=== PATIENT | male | born 1980 | race Caucasian/White ===

== ENCOUNTER 2025-08-18 10:13 | Outpatient (AMB) | payer OTHER, SELFPAY ==
--- NOTE | 2025-08-18 10:17 | MHC.PC.OV ---
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 Intake Note: New patient visit Stringed Instrument Repairer Required: No Allergies atorvastatin Allergy (Unknown, Verified 08/18/25 10:18) stomach upset No Known Allergies Allergy (Verified 08/18/25 10:18) Medication List - Last Reconciled 08/18/25 by Maggie Dover PA-C famotidine 10 mg PO DAILY Tobacco use date assessed: 08/18/25 Dental Screening Dental Screen Date: 08/18/25 Did you have a dental visit in the last 12 months?: No Did you have a dental problem in the last 6 months where you did not have access to dental care?: No Was dental information given to patient?: Patient declined HPI LONG 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 He is transferring internally. He states a couple years ago he [facility] and [facility] diagnosed with obstructive sleep apnea. He does have the paperwork today proving this study. Was recommended that he start CPAP. He has not been in to see a PCP to get a referral for this. His tells him that he is still stops breathing at night and snores. He has also noticed that his blood pressure is elevated over the last year or 2.. CV: Blood pressure today in the office is 152/86. Sometimes he does get chest pain and he states it is usually while he is sitting they are not doing anything. He does have a family history of heart disease. States that his father 1st needed a CABG at the age of 50. Family history: Father has heart disease and prostate cancer. 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 1. Little interest or pleasure in doing things: not at all 2. Feeling down, depressed, or hopeless: not at all 3. Trouble falling or staying asleep, or sleeping too much: not at all 4. Feeling tired or having little energy: not at all 5. Poor appetite or overeating: not at all 6. Feeling bad about yourself - or that you are a failure or have let yourself or your family down: not at all 7. Trouble concentrating on things, such as reading the newspaper or watching television: not at all 8. Moving or speaking so slowly that other people could have noticed. Or the opposite - being so fidgety or restless that you have been moving around a lot more than usual: not at all 9. Thoughts that you would be better off or of hurting yourself in some way: not at all Total score: 0 Depression Screening Interpretation: Negative Depression Screening Done: Yes 30726 - PHQ-9 Billing: Yes Source: Developed by Drs. Maxim Vega, Anayeli Chung, Alton Birmingham and colleagues, with an educational venus from [employer]. Thrive Questionnaire I am a: Patient What is your living situation today?: I have a steady place to live Within the past 12 months, did the food you bought not last and you didn't have the money to get more?: Never true Within the past 12 months, did you worry whether your food would run out before you got money to buy more?: Never true Do you have trouble paying for medicines?: No Do you have trouble getting transportation to medical appointments?: No Do you have trouble paying your heating and electricity bill?: No Do you have trouble taking care of your child, family member or friend?: No Do you have trouble with day-to-day activities such as bathing, preparing meals, shopping, managing finances, etc.?: No Are you currently unemployed and looking for a job?: No Are you interested in more education?: No Please select the resources that you would like help with: None Currently or been in a relationship where the following occur: No concerns reported THRIVE Score: 0 AUDIT C Alcohol Use Questionnaire (AUDIT-C) 1. How often do you have a drink containing alcohol?: 4 or more times a week 2. How many drinks containing alcohol do you have on a typical day when you are drinking?: 3 or 4 3. How often do you have six or more drinks on one occasion?: Weekly Total Score: 8 Score Reviewed/Action Taken: Yes MICHELLE-7 AMB Questionnaire MICHELLE-7 Feeling nervous, anxious, or on edge: 0 = Not at all Not being able to stop or control worryin = Not at all Worrying too much about different things: 0 = Not at all Trouble relaxin = Not at all Being so restless that it is hard to sit still: 0 = Not at all Becoming easily annoyed or irritable: 0 = Not at all Feeling afraid as if something awful might happen: 0 = Not at all Total MICHELLE-7 score (0-4 normal; 5-9 mild; 10-14 moderate; 15-21 severe): 0 Source: Developed by Drs. Maxim Vega, Anayeli Chung, Alton Birmingham and colleagues, with an educational venus from [employer]. MICHELLE-7 Assessment Billing MICHELLE-7 Assessment Tool: MICHELLE-7 Assessment 82740 Physical exam (Primary Care) Vital Signs: Last Vital Signs Temp 98.1 F 08/18/25 10:20 Pulse 86 08/18/25 10:20 Resp 14 08/18/25 10:20 BP 152/86 H 08/18/25 10:27 Pulse Ox 98 08/18/25 10:20 Oxygen Delivery Method Room Air 08/18/25 10:20 BMI result Body Mass Index 32.6 Tobacco/Smoking Status: Tobacco use Status Tobacco use date assessed 08/18/25 08/18/25 10:22 Patient Tobacco Use Status Former Tobacco user 08/18/25 10:22 e-Cigarette/Vaping Use Never Used 08/18/25 10:22 PHQ-9: PHQ-9 Score PHQ-9: Total score 0 08/18/25 10:22 Depression Screening Interpretation: Negative Currently or been in a relationship where the following occur: No concerns reported Coding Level of Care Code New Pt Level 4 (01172) Complex EM visit Add On G2211 Diagnoses CALVIN (obstructive sleep apnea) G47.33 Hypertension I10 Atypical chest pain R07.89 Additional Codes PHQ-9 - 57356 - PHQ-9 Billing: Yes ([id number]) MICHELLE-7 Assessment Billing - MICHELLE-7 Assessment Tool: MICHELLE-7 Assessment 95450 ([id number]) Assessment & Plan Assessment & Plan (1) CALVIN (obstructive sleep apnea): Code(s): G47.33 - Obstructive sleep apnea (adult) (pediatric) Category: Medical Plan: Sleep study ordered referral to sleep Medicine (2) Hypertension: Code(s): I10 - Essential (primary) hypertension Category: Medical Plan: Elevated today. We will start lisinopril. Discussed risks and benefits and adverse effects of this medication he will return in 3-4 weeks to be rechecked. (3) Atypical chest pain: Code(s): R07.89 - Other chest pain Category: Medical Plan: EKG today is normal sinus rhythm at a rate of 76 beats per minute with nonspecific STT wave abnormalities. No prior study to compare. EKG interpreted myself. Stress test ordered. Chest x-ray ordered Orders: Orders Complete Blood Count Auto Diff Today G47.33 - Obstructive sleep apnea (adult) (pediatric), I10 - Essential (primary) hypertension, Z80.42 - Family history of malignant neoplasm of prostate, Z82.49 - Family history of ischemic heart disease and other diseases of the circulatory system Comprehensive [place]. Panel Fast Today G47.33 - Obstructive sleep apnea (adult) (pediatric), I10 - Essential (primary) hypertension, Z80.42 - Family history of malignant neoplasm of prostate, Z82.49 - Family history of ischemic heart disease and other diseases of the circulatory system UA CC w/rflx Micro + Cult Today G47.33 - Obstructive sleep apnea (adult) (pediatric), I10 - Essential (primary) hypertension, R30.0 - Dysuria, Z80.42 - Family history of malignant neoplasm of prostate, Z82.49 - Family history of ischemic heart disease and other diseases of the circulatory system RT home sleep study Today R06.81 - Apnea, not elsewhere classified CA stress test Today I10 - Essential (primary) hypertension, R07.89 - Other chest pain, Z82.49 - Family history of ischemic heart disease and other diseases of the circulatory system Lipid Panel Today G47.33 - Obstructive sleep apnea (adult) (pediatric), I10 - Essential (primary) hypertension, Z80.42 - Family history of malignant neoplasm of prostate, Z82.49 - Family history of ischemic heart disease and other diseases of the circulatory system TSH reflex Free T4 Today G47.33 - Obstructive sleep apnea (adult) (pediatric), I10 - Essential (primary) hypertension, Z80.42 - Family history of malignant neoplasm of prostate, Z82.49 - Family history of ischemic heart disease and other diseases of the circulatory system Prostate Specific Antigen Scr Today G47.33 - Obstructive sleep apnea (adult) (pediatric), I10 - Essential (primary) hypertension, Z01.89 - Encounter for other specified special examinations, Z80.42 - Family history of malignant neoplasm of prostate, Z82.49 - Family history of ischemic heart disease and other diseases of the circulatory system XR chest 2V Today I10 - Essential (primary) hypertension, Z82.49 - Family history of ischemic heart disease and other diseases of the circulatory system AMB EKG-In Office Today I10 - Essential (primary) hypertension, Z82.49 - Family history of ischemic heart disease and other diseases of the circulatory system Referrals Sleep Medicine Referral G47.33 - Obstructive sleep apnea (adult) (pediatric), I10 - Essential (primary) hypertension
[2025-08-18 10:20] VITALS: BP 144/84; PULSE 86; RESP 14; TEMP 36.7; O2SAT 98; BMI 32.6
[2025-08-18 10:27] VITALS: BP 152/86
== END 2025-08-18 11:06 | disposition home or self-care (01) ==
LOC: HO.HMCFM 10:14
PROVIDERS: PCP Physician Assistant; Visit Provider Physician Assistant
DX: G47.33 Obstructive sleep apnea (adult) (pediatric) (principal); I10 Essential (primary) hypertension; R07.89 Other chest pain

== ENCOUNTER 2025-08-18 10:13 | Outpatient (REF) | payer OTHER, SELFPAY ==
[2025-08-18 14:09] LABS: Appearance Urine Clear; Glucose Urine UA Negative (Negative); PH 8.0 (5.0-9.0); Specific Gravity - Urine <= 1.005 (1.005-1.025)
[2025-08-18 14:13] LABS: MANUAL DIFF FLAG NO
[2025-08-18 14:17] LABS: Hematocrit 45.3 % (42.0-52.0); Hemoglobin 15.6 g/dl (14.0-18.0); Imm Gran Abs Auto 0.03 X10*3/uL (0.00-0.03); Imm Gran Pct Auto 0.6 % (0.0-0.4); Lymphocytes Absolute Auto 2.0 X10*3/uL (1.2-4.9); Mean Corpuscular HGB Conc 34.4 g/dl (31.0-36.0); Mean Corpuscular Hemoglobin 31.8 pg (27.0-33.0); Mean Corpuscular Volume 92.4 fL (80.0-98.0); NRBC Abs Auto 0.000 X10*3/uL (0.0-0.012); NRBC Pct Auto 0.0 /100WBC (0.0-0.2); Platelet Count 206 X10*3/uL (160-400); Red Blood Count 4.90 X10*6/uL (4.60-5.80); White Blood Count 5.0 X10*3/uL (4.8-10.8)
[2025-08-18 14:41] LABS: Alanine Aminotransferase 46 U/L (0-40); Albumin Level 4.9 g/dL (3.5-5.0); Anion Gap 12 (12-20); Aspartate Amino Transferase 34 U/L (5-37); Blood Urea Nitrogen 11 mg/dL (9-16); Calcium 9.3 mg/dL (8.4-10.2); Carbon Dioxide 28 mmol/L (22-29); Chloride 105 mmol/L (96-108); Cholesterol 281 mg/dL (<200); Estimated Glomerular Filt Rate > 60; HDL Cholesterol 44 mg/dL (>40); Potassium 4.3 mmol/L (3.3-5.1); Sodium 141 mmol/L (135-145); Total Protein 7.7 g/dL (6.5-8.0); Triglycerides 531 mg/dL (<150)
[2025-08-18 14:56] LABS: Alkaline Phosphatase 66 U/L (39-117)
== END 2025-08-18 10:14 | disposition home or self-care (01) ==
LOC: HO.WFDLDS 10:13
PROVIDERS: PCP Physician Assistant; Visit Provider Physician Assistant
DX: R30.0 Dysuria (principal); G47.33 Obstructive sleep apnea (adult) (pediatric); I10 Essential (primary) hypertension; Z99.89 Dependence on other enabling machines and devices; R07.89 Other chest pain; Z12.5 Encounter for screening for malignant neoplasm of prostate; Z82.49 Family history of ischemic heart disease and other diseases of the circulatory system; Z80.42 Family history of malignant neoplasm of prostate; Z01.89 Encounter for other specified special examinations
CPT/HCPCS: 36415; 80053; 80061; 81003; 84153; 84443; 85025; 96127

== ENCOUNTER 2025-09-23 11:03 | Outpatient (AMB) | payer OTHER, SELFPAY ==
[2025-09-23 11:13] VITALS: BP 152/104; PULSE 74; RESP 14; TEMP 36.6; O2SAT 100; BMI 32.4
--- NOTE | 2025-09-23 11:13 | MHC.PC.OV ---
Vital Signs 09/23/25 11:13 09/23/25 11:25 09/23/25 12:00 09/23/25 12:10 Height 6 ft 0.05 in Weight 239 lb BMI 32.4 BP 152/104 H 144/104 H 166/107 H 148/94 H Blood Pressure Location Rt brachial Rt brachial Rt brachial Rt brachial Position Sitting Sitting Sitting Sitting Respiration 14 Pulse 74 Pulse Source Pulse Oximeter Temp 98 F Temp Source Oral Pulse Oximetry (%) 100 Oxygen Delivery Method Room Air Intake Visit Reasons: med check Intake Note: Medication follow up [employer] Consultant Required: No Allergies atorvastatin Allergy (Unknown, Verified 09/23/25 11:14) stomach upset No Known Allergies Allergy (Verified 09/23/25 11:14) Medication List - Last Reconciled 09/23/25 by Maggie Dover PA-C famotidine 10 mg PO DAILY Tobacco use date assessed: 09/23/25 Dental Screening Dental Screen Date: 08/18/25 HPI med check HPI Details Patient is a year old male who presents today for a follow up/blood pressure check. CV: Blood pressure today in the office is initially 144/104. It was repeated to be about the same. He is asymptomatic. He he was given 0.1 mg of clonidine in the office in his blood pressure did lower to 140/94. He does have upcoming stress test scheduled. He does have a family history of heart disease. States that his father 1st needed a CABG at the age of 50. He has an appointment soon with sleep medicine to review this sleep apnea Last labs did show elevated cholesterol specifically triglycerides and he has cut back on beer and has made some lifestyle modifications. Family history: Father has heart disease and prostate cancer. 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 [place] Current occupational exposures/hazards: Yes Cognitive needs: No Hearing needs: No Vision needs: No Questionnaire Thrive Questionnaire Date Thrive assessed: 08/18/25 I am a: Patient What is your living situation today?: I have a steady place to live Within the past 12 months, did the food you bought not last and you didn't have the money to get more?: Never true Within the past 12 months, did you worry whether your food would run out before you got money to buy more?: Never true Do you have trouble paying for medicines?: No Do you have trouble getting transportation to medical appointments?: No Do you have trouble paying your heating and electricity bill?: No Do you have trouble taking care of your child, family member or friend?: No Do you have trouble with day-to-day activities such as bathing, preparing meals, shopping, managing finances, etc.?: No Are you currently unemployed and looking for a job?: No Are you interested in more education?: No Please select the resources that you would like help with: None Currently or been in a relationship where the following occur: No concerns reported THRIVE Score: 0 AUDIT C Alcohol Use Questionnaire (AUDIT-C) 1. How often do you have a drink containing alcohol?: 2-3 times a week 2. How many drinks containing alcohol do you have on a typical day when you are drinking?: 5 or 6 3. How often do you have six or more drinks on one occasion?: Never Total Score: 5 Physical exam (Primary Care) Vital Signs: Last Vital Signs Temp 98 F 09/23/25 11:13 Pulse 74 09/23/25 11:13 Resp 14 09/23/25 11:13 BP 144/104 H 09/23/25 11:25 Pulse Ox 100 09/23/25 11:13 Oxygen Delivery Method Room Air 09/23/25 11:13 BMI result Body Mass Index 32.4 Tobacco/Smoking Status: Tobacco use Status Tobacco use date assessed 09/23/25 09/23/25 11:17 Patient Tobacco Use Status Former Tobacco user 09/23/25 11:17 e-Cigarette/Vaping Use Never Used 09/23/25 11:17 Thrive Assessment: Date of Thrive Assessment Date Thrive assessed 08/18/25 09/23/25 11:17 Currently or been in a relationship where the following occur: No concerns reported Const Orientation/consciousness: patient oriented x3 HENMT Ears: hearing grossly normal bilaterally Neck Thyroid: Thyroid normal Lymphatic: no lymphadenopathy noted Resp Auscultation: clear to auscultation bilaterally Cardio Rate: regular rate Rhythm: regular rhythm Heart sounds: S1 normal heart sound present and S2 normal heart sound present GI Inspection: Yes normal to inspection Palpation (GI): Soft to palpation and Other GI palpation findings present (nontender, no cva tenderness) Auscultation: normoactive bowel sounds Rectal Exam - Male: Yes deferred Skin General skin exam: no rashes or lesions noted Neuro General: patient oriented x3, gait normal and no focal motor deficits Coding Level of Care Code Est Pt Level 4 (25981) Complex EM visit Add On G2211 Diagnoses CALVIN (obstructive sleep apnea) G47.33 Hypertension I10 Hypertriglyceridemia E78.1 Assessment & Plan Assessment & Plan (1) CALVIN (obstructive sleep apnea): Code(s): G47.33 - Obstructive sleep apnea (adult) (pediatric) Category: Medical Plan: Has an appointment soon with sleep Medicine (2) Hypertension: Code(s): I10 - Essential (primary) hypertension Category: Medical Plan: Elevated today. We will start lisinopril. Discussed risks and benefits and adverse effects of this medication he will return in 2-3 weeks to be rechecked by our nurse. Discussed that I will adjust medication pending that appointment. He will let me know if he gets any side effects (3) Hypertriglyceridemia: Code(s): E78.1 - Pure hyperglyceridemia Category: Medical Plan: We will recheck labs in 2 weeks. If still elevated we will start medication Medications: New lisinopril 10 mg PO DAILY 90 tabs 0RF
[2025-09-23 11:25] VITALS: BP 144/104
[2025-09-23 12:00] VITALS: BP 166/107
[2025-09-23 12:10] VITALS: BP 148/94
== END 2025-09-23 12:16 | disposition home or self-care (01) ==
LOC: HO.HMCFM 11:03
PROVIDERS: PCP Physician Assistant; Visit Provider Physician Assistant
DX: G47.33 Obstructive sleep apnea (adult) (pediatric) (principal); I10 Essential (primary) hypertension; E78.1 Pure hyperglyceridemia

== ENCOUNTER 2025-10-04 08:19 | Outpatient (AMB) | payer OTHER, SELFPAY ==
--- NOTE | 2025-10-04 08:31 | MHC.OFFVIS ---
Vital Signs 10/04/25 08:32 Height 6 ft Weight 241 lb BMI 32.7 BP 150/100 H Blood Pressure Location Rt brachial Position Sitting Pulse 86 Pulse Source Pulse Oximeter Pulse Oximetry (%) 96 Oxygen Delivery Method Room Air Intake Visit Reasons: INP-Obstructive sleep apnea, Ess.(primary) hyperte Basin Operator Required: No Accompanied by: Self / Same As Patient Allergies atorvastatin Allergy (Unknown, Verified 10/04/25 08:37) stomach upset No Known Allergies Allergy (Verified 10/04/25 08:37) HPI Comments Details: 45 year old male presents for an evaluation of sleep apnea. 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 His c/o loud snoring, gasping for air, and multiple arousals at night. He had a sleep study two years ago and was diagnosed with sleep apnea per the [facility]'s home based test. He had an inconclusive PSG in April 2015, with an inconclusive test, 16% snoring TIB. He has ethmoid sinus pressure in the face with blurry vision in the AMs upon waking up. His sleep is worse now, and he no longer shares a bedroom with his . He was started on meds recently as his bp continues to be elevated today it is 150/100. He has GERD managed with diet and lifestyle along with famotidine though worse when laying flat with a burning sensation in his throat. He has a restless sensation of tingling in hands bilaterally, along with paresthesias in the plantar surface of feet with radiating cramps bilaterally waking him up from sleep. He feels irritable and impatient at night. His memory and diet are stable. He walks daily for 30 min, and is mindful of water intake. FH+ mom 51 passed d/t breast cancer and Dad+ HTN, HLD, CALVIN at 50 By-pass/ cabg. Denies smoking, MJ edibles, morning headaches, bruxism, clenching of the jaw, parasomnias, flailing thrashing behaviors. 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 [place] Current occupational exposures/hazards: Yes Cognitive needs: No Hearing needs: No Vision needs: No Physical Exam Vital Signs: Last Vital Signs Pulse 86 10/04/25 08:32 BP 150/100 H 10/04/25 08:32 Pulse Ox 96 10/04/25 08:32 Oxygen Delivery Method Room Air 10/04/25 08:32 BMI result Body Mass Index 32.7 Const General: cooperative, comfortable and no acute distress Nutritional Appearance: obese Orientation/consciousness: patient oriented x3 HEENT Face and sinus: Yes face symmetric Teeth and gingiva: other ([place] score is 4) Eyes Pupils: Equal, round and reactive pupils present Neck Neck: Yes full ROM Resp Effort & Inspection: normal respiratory effort and able to speak in complete sentences Neuro General: patient oriented x3 and moves all extremities Cranial nerves: Yes Equal, round and reactive pupils present, Yes Normal accommodation reflex present, Yes Nystagmus not present, Yes Normal facial strength present, Yes Midline tongue present, Yes Ability to bilaterally rotate head present and Yes Ability to bilaterally elevate shoulders present Cognition (Neuro): normal cognition Gait exam (Neuro): Normal gait present Motor exam (neuro): 5/5 motor strength present throughout and Normal motor muscle tone present throughout Psych Appearance: grossly normal Mental Status: mental status grossly normal Attitude: cooperative Thought process: Normal thought process present Thought content: Normal thought content present Results Reviewed Results Reviewed: Diagnosis CALVIN 07/[facility] AHI max 7.5/hr and oxygen desaturation to 75% start apap [id number] f/u for compliance. Pt. was never started on therapy or followed. Assessment & Plan Assessment & Plan (1) Excessive daytime and night-time sleepiness: Code(s): G47.19 - Other hypersomnia Category: Medical (2) CALVIN (obstructive sleep apnea): Code(s): G47.33 - Obstructive sleep apnea (adult) (pediatric) Category: Medical (3) Hypersomnia: Code(s): G47.10 - Hypersomnia, unspecified Category: Medical (4) Chronic fatigue: Code(s): R53.82 - Chronic fatigue, unspecified Category: Medical (5) RLS (restless legs syndrome): Code(s): G25.81 - Restless legs syndrome Category: Medical Plan Excessive daytime Sleepiness with CALVIN not on therapy will send him for PSG to r/o CALVIN or rule in CALVIN and start therapy. Snoring 16% of TIB, will monitor. RLS will monitor. Labs reviewed with pt start B12 1000mcg po daily, and Vit D 1000units daily. Magnesium 200-400mg po daily for RLS symptoms. F/U in 3 months Orders: Orders RT PSG in-lab sleep study Today G25.81 - Restless legs syndrome, G47.19 - Other hypersomnia Patient Instructions: Sleep Hygiene provided: set a scheduled bedtime and wake time to help regulate the circadian rhythm and balance the release of pituitary hormones. Sleep in a dark room, temperatures below 68 degrees, and no devices n bed. Limit caffeinated products 6 hours prior to bed, and limit fluids 2-4 hours prior to bed. Gentle night yoga, diffusing essential oils, and playing soft music can be relaxing. Coding Level of Care Code New Pt Level 4 (36841) Diagnoses Excessive daytime and night-time sleepiness G47.19 CALVIN (obstructive sleep apnea) G47.33 Hypersomnia G47.10 Chronic fatigue R53.82 RLS (restless legs syndrome) G25.81 Comment 3 mon f/u Sleep Questionnaire Difficulty falling asleep: Yes Difficulty staying asleep?: Yes Number of arousals: 3-4 Snoring: Yes Witnessed apneas: Yes Gasping arousals: Yes Nocturia: No GERD: Yes Vivid dreams: Yes Acting out dreams: No Abnormal behavior in sleep: No Abnormal movements in sleep: No Morning headaches: No Excessive daytime sleepiness: Yes Daytime naps: Yes Restless legs: Yes Hallucinations: No Sleep paralysis: Yes Drop attacks: No Sleep Study: Yes CPAP: No
[2025-10-04 08:32] VITALS: BP 150/100; PULSE 86; O2SAT 96; BMI 32.7
== END 2025-10-04 09:20 | disposition home or self-care (01) ==
LOC: HO.HSMS 08:20
PROVIDERS: PCP Physician Assistant; Visit Provider Physician Assistant Medical
DX: G47.19 Other hypersomnia (principal); G47.33 Obstructive sleep apnea (adult) (pediatric); G47.10 Hypersomnia, unspecified; R53.82 Chronic fatigue, unspecified; G25.81 Restless legs syndrome
CPT/HCPCS: 99204

== ENCOUNTER → 2025-10-18 07:48 | Outpatient (REF) | payer OTHER, SELFPAY ==
--- NOTE | 2025-10-18 07:49 | CA_ITS ---
Acquisition Time: 2025-10-18 07:54:03 Total Exercise Time: 00:10:59 Test Indications: CP Medications: SEE H&P Protocol: MIKAL Max HR: 160 BPM 90% of Pred: 177 BPM Max BP: 164/84 mmHG Max Work Load: 13.3 METS Exercise stress test with exercise 10 mins 59 secs of Mikal Protocol, achieving 88% MPHR, with reports of mild SOB, no chest pain, without any arrythmias, with normotensive response to exercise- baseline HTN 142/100. Without any EKG changes meeting criteria for ischemia. Recommend further management of BP. In recovery, breathing improved and pt feeling back to baseline. Test reviwed with Dr. Fernando. Referred By: Maggie Dover Electronically Signed By: Santosh Boogie
== END ==
LOC: HO.CARD 07:48
PROVIDERS: PCP Physician Assistant; Visit Provider Physician Assistant
DX: I10 Essential (primary) hypertension (principal); R07.89 Other chest pain; Z82.49 Family history of ischemic heart disease and other diseases of the circulatory system
CPT/HCPCS: 93017

== ENCOUNTER → 2025-10-18 07:49 | Outpatient (BNV) | payer OTHER, SELFPAY | PROVIDERS: PCP Physician Assistant | DX: R06.02 Shortness of breath (principal) | CPT/HCPCS: 93016; 93018 ==

== ENCOUNTER → 2025-11-02 20:30 | Outpatient (REF) | payer OTHER, SELFPAY | LOC: HO.SL 20:30 | PROVIDERS: PCP Physician Assistant; Visit Provider Physician Assistant Medical | DX: G25.81 Restless legs syndrome (principal); G47.19 Other hypersomnia | CPT/HCPCS: 95810 ==

== ENCOUNTER → 2025-11-02 23:49 | Outpatient (BNV) | payer OTHER, SELFPAY | PROVIDERS: PCP Physician Assistant; Visit Provider Psychiatry & Neurology Neurology | DX: R40.0 Somnolence (principal); R06.83 Snoring | CPT/HCPCS: 95810 ==